=== PATIENT | female | born 1990 | race Caucasian/White ===

== ENCOUNTER 2018-09-22 13:50 | Emergency (ER) | payer OTHER ==
[2018-09-22 14:03] VITALS: BP 152/83
--- NOTE | 2018-09-22 15:05 | UC ---
UC General HPI - HPI Summary HPI Summary: PER TRIAGE, c/o L sinus pain under eye that started 2 days ago. States thought it may be a tooth issue today and put on Rexall. Shortly after putting medication on gum, felt like L side of face was tingly and heavy with throbbing pain. States was not able to speak in complete sentences. States now, pain is lessened, and tingling and heaviness has decreased. Pt denies current s/s's. she had no visual change, headache or numbness/ weakness. she reports that the L sinus pain came from a L upper bad tooth. When she applied the Rexall, it caused her sudden severe sharp pain and the pain made it hard for her to talk. she denies sinus congestion/drainage and fever, she has had sinusitis in the past and this is not a sinusitis. pt reports that her teeth are very bad. - History of Current Complaint Chief Complaint: UCGeneralIllness Stated Complaint: LT SIDE FACIAL PAIN,THROAT SWELLING Time Seen by Provider: 09/22/18 14:29 Hx Obtained From: Patient Hx Last Menstrual Period: unknown Pain Intensity: 2 Associated Signs & Symptoms: Negative: Fever, Headache - Allergy/Home Medications Allergies/Adverse Reactions: Allergies Allergy/AdvReac Type Severity Reaction Status Date / Time No Known Allergies Allergy Verified 09/22/18 13:56 Home Medications: Home Medications Iud ONCE 09/22/18 [History] Rexall 1 applic TOPICAL ONCE PRN 09/22/18 [History] PMH/Surg Hx/FS Hx/Imm Hx Previously Healthy: Yes - Surgical History Surgical History: Yes Surgery Procedure, Year, and Place: urinary procedure. appy - Family History Known Family History: Positive: Non-Contributory - Social History Alcohol Use: None Substance Use Type: None Smoking Status (MU): Never Smoked Tobacco Review of Systems All Other Systems Reviewed And Are Negative: Yes Constitutional: Negative: Fever, Chills Skin: Negative: Rash Eyes: Positive: Diplopia. Negative: Blurred Vision, Drainage, Eye Redness, Photophobia ENT: Positive: Dental Pain. Negative: Sore Throat, Ear Ache, Nasal Discharge Neurological: Negative: Headache Physical Exam Triage Information Reviewed: Yes Appearance: Well-Appearing Vital Signs: Initial Vital Signs Temp 97.9 F 09/22/18 13:58 Pulse 86 09/22/18 13:58 Resp 16 09/22/18 13:58 BP 152/83 09/22/18 13:58 Pulse Ox 100 09/22/18 13:58 Vital Signs Reviewed: Yes Eyes: Positive: Conjunctiva Clear ENT: Positive: Pharynx normal, TMs normal. Negative: Nasal congestion, Nasal drainage, Sinus tenderness Dental: Positive: Gross Decay/Caries @, Dental Fracture @ - L upper posterior bicuspid is fx with decay and flush with gum. gum is red and tender.. Negative : Abscess @ Neck: Positive: Supple, Nontender, No Lymphadenopathy Respiratory: Positive: No respiratory distress Musculoskeletal: Positive: ROM Intact Neurological: Positive: Alert, Other: - A&Ox3. CN 2-12 grossly intact. Steady gait. Speech is clear. Psychological: Positive: Age Appropriate Behavior Skin Exam: Normal Skin: Negative: Rashes Course/Dx - Differential Dx - Multi-Symptom Differential Diagnoses: Other - no abscess but severe widespread decay and gingivitis. pain localized to the L upper bicuspid fx,decaying tooth where pt applied the Rexall. No concern for an intracranial neurologic process. - Diagnoses Provider Diagnosis: Gingivitis Discharge - Sign-Out/Discharge Documenting (check all that apply): Patient Departure All imaging exams completed and their final reports reviewed: No Studies - Discharge Plan Condition: Stable Disposition: HOME Prescriptions: Amoxicillin/Clavulanate TAB* [Augmentin TAB 875*] 875 mg PO BID 10 Days #20 tab Naproxen [Naprosyn 500 mg tab] 500 mg PO BID PRN #15 tablet PRN Reason: Pain (Dental) Patient Education Materials: Gingivitis (ED), Toothache (ED) Referrals: No Primary Care Phys,NOPCP [Primary Care Provider] - Additional Instructions: FOLLOW UP WITH DENTAL SOON POSSIBLE - Billing Disposition and Condition Condition: STABLE Disposition: Home
== END 2018-09-22 15:18 | disposition home or self-care (01) ==
LOC: UCCORT 13:50
DX: K05.10 Chronic gingivitis, plaque induced (principal)
CPT/HCPCS: 99202; G0463

== ENCOUNTER 2019-05-20 16:38 | Emergency (ER) | payer SELFPAY ==
[2019-05-20 16:59] VITALS: BP 122/87
--- NOTE | 2019-05-20 17:07 | UC ---
FLU HPI - HPI Summary HPI Summary: Monday felt feverish, body aches, sore throat, cough, feels lightheaded, feels very run down. Using elsie seltzer cold and flu. - History of Current Complaint Chief Complaint: UCGeneralIllness Stated Complaint: FLU LIKE ILLNESS Time Seen by Provider: 05/20/19 16:49 Hx Obtained From: Patient Hx Last Menstrual Period: unknown ?: No Onset/Duration: Sudden Onset, Lasting Days - 2 Severity Currently: Mild Severity Initially: Mild Pain Intensity: 3 Associated Signs & Symptoms: Positive: Fever, Myalgia, Sore Throat, Headache - Allergy/Home Medications Allergies/Adverse Reactions: Allergies Allergy/AdvReac Type Severity Reaction Status Date / Time No Known Allergies Allergy Verified 05/20/19 16:59 Home Medications: Home Medications Iud ONCE 09/22/18 [History] Dm/PE/Acetaminophen/Doxylamine [Elsie-[place] Plus Day-Night Cp] 1 each PO ONCE PRN 05/20/19 [History Confirmed 05/20/19] PMH/Surg Hx/FS Hx/Imm Hx Previously Healthy: Yes - Surgical History Surgical History: Yes Surgery Procedure, Year, and Place: urinary procedure. appy - Family History Known Family History: Negative: Cardiac Disease, Hypertension - Social History Alcohol Use: None Substance Use Type: None Smoking Status (MU): Never Smoked Tobacco Review of Systems All Other Systems Reviewed And Are Negative: Yes Constitutional: Positive: Fever, Fatigue ENT: Positive: Sore Throat Respiratory: Positive: Cough Neurological/Mental Status: Positive: Headache Is Patient Immunocompromised?: No Physical Exam Triage Information Reviewed: Yes Appearance: Well-Nourished, Ill-Appearing, Pain Distress Vital Signs: Initial Vital Signs Temp 98.6 F 05/20/19 16:52 Pulse 73 05/20/19 16:52 Resp 18 05/20/19 16:52 BP 122/87 05/20/19 16:52 Pulse Ox 98 05/20/19 16:52 Vital Signs Reviewed: Yes Eye Exam: Normal ENT: Positive: Pharyngeal erythema, TM bulging - with serous fluid bilateral Dental Exam: Normal Neck exam: Normal Respiratory Exam: Normal Respiratory: Positive: Chest non-tender, Lungs clear, Normal breath sounds Cardiovascular Exam: Normal Abdominal Exam: Normal Bowel Sounds: Positive: Present Musculoskeletal Exam: Normal Neurological Exam: Normal Psychological Exam: Normal Skin Exam: Normal Flu Course/Dx - Course Course Of Treatment: hx obtained, exam performed, meds reviewed, rapid flu - Differential Dx/Diagnosis Differential Diagnosis/HQI/PQRI: Influenza Provider Diagnosis: Viral syndrome Discharge ED - Sign-Out/Discharge Documenting (check all that apply): Patient Departure All imaging exams completed and their final reports reviewed: No Studies - Discharge Plan Condition: Stable Disposition: HOME Patient Education Materials: Viral Syndrome (ED) Forms: *Work Release Referrals: No Primary Care Phys,NOPCP [Primary Care Provider] - Additional Instructions: 1. increase fluids and get rest 2. take the medication as prescribed. 3. Follow up as needed. - Billing Disposition and Condition Condition: STABLE Disposition: Home
[2019-05-20 17:22] LABS: Influenza A Molecular Negative (Negative); Influenza B Molecular Negative (Negative)
== END 2019-05-20 17:39 | disposition home or self-care (01) ==
LOC: UCCORT 16:38
DX: B34.9 Viral infection, unspecified (principal); R05 Cough; J02.9 Acute pharyngitis, unspecified; M79.10 Myalgia, unspecified site; R53.83 Other fatigue; R51 Headache
CPT/HCPCS: 99211; G0463